=== PATIENT | male | born 1975 | race Caucasian/White ===

== ENCOUNTER 2018-11-15 21:28 | Emergency (ER) | payer SELFPAY ==
--- NOTE | 2018-11-15 21:39 | Emergency Department Record ---
History of Present Illness - General Chief Complaint: Ankle/Foot Injury Stated Complaint: LT FOOT BIG TOE NAIL RIPPED OFF Time Seen by Provider: 11/15/18 21:38 Source: Patient Mode of Arrival: Ambulatory Limitations: No limitations - History of Present Illness Initial Comments: 43 yo male presents to ED for evaluation following avulsion of the left great toe tail 3 days ago. Patient reports that he struck his toe on the door of his refrigerator resulting in mild avulsion, denies bleeding, redness, or swelling of the toe. Patient denies other injury on examination, denies health problems at her baseline. Patient reports that he has been soaking the toe in epson salt to prevent infection. MD Complaint: Other (Toe injury) Onset/Timin -: Days(s) Injury: Toes: Left Type of Injury: Blunt Place: Home Severity: Moderate Improves With: Nothing Worsens With: Nothing Context: Direct blow - Related Data Home Medications Medication Instructions Recorded Confirmed Last Taken No Home Med [NO HOME MEDS] 11/15/18 11/15/18 Unknown Previous Rx's Medication Instructions Recorded Cephalexin [Keflex] 500 mg PO QID #28 cap 11/15/18 Allergies Allergy/AdvReac Type Severity Reaction Status Date / Time No Known Drug Allergies Allergy Verified 11/15/18 21:39 Review of Systems Constitutional: Denies: Chills, Fever, Malaise, Night sweats Eyes: Denies: Eye discharge, Eye pain ENT: Denies: Congestion, Ear pain, Epistaxis Respiratory: Denies: Cough, Dyspnea Cardiovascular: Denies: Chest pain, Dyspnea on exertion Endocrine: Denies: Fatigue, Heat or cold intolerance Gastrointestinal: Denies: Abdominal pain, Nausea, Vomiting Genitourinary: Denies: Incontinence, Retention Musculoskeletal: Denies: Arthralgia, Back pain, Gout, Joint swelling Skin: Reports: Other (Toenail avulsion). Denies: Bruising, Change in color Neurological: Denies: Abnormal gait, Confusion, Headache, Seizure Psychiatric: Denies: Anxiety Hematological/Lymphatic: Denies: Anemia, Blood Clots Physical Exam - General General Appearance: Alert, Oriented x3, Cooperative, No acute distress Limitations: No limitations - Head Head exam: Atraumatic, Normocephalic, Normal inspection Head exam detail: negative: Abrasion, Contusion, Hamlin's sign, General tenderness, Hematoma, Laceration - Eye Eye exam: Normal appearance. negative: Conjunctival injection, Periorbital swelling, Periorbital tenderness, Scleral icterus - ENT Ear exam: negative: Auricular hematoma, Auricular trauma Nasal Exam: negative: Active bleeding, Discharge, Dried blood, Foreign body Mouth exam: negative: Drooling, Laceration, Muffled voice, Tongue elevation - Neck Neck exam: Normal inspection. negative: Meningismus, Tenderness - Respiratory Respiratory exam: Normal lung sounds bilaterally. negative: Rales, Respiratory distress, Rhonchi, Stridor - Cardiovascular Cardiovascular Exam: Regular rate, Normal rhythm, Normal heart sounds - GI/Abdominal GI/Abdominal exam: Soft. negative: Rebound, Rigid, Tenderness - Rectal Rectal exam: Deferred - exam: Deferred - Extremities Extremities exam: Tenderness, Other (Mild avulsion of left great toe on examination). negative: Calf tenderness, Pedal edema - Back Back exam: Denies: CVA tenderness (R), CVA tenderness (L) - Neurological Neurological exam: Alert, Normal gait, Oriented X3 - Psychiatric Psychiatric exam: Normal affect, Normal mood - Skin Skin exam: Normal color. negative: Abrasion Type of lesion: negative: abrasion Course Vital Signs 11/15/18 21:32 Temperature 98 F Pulse Rate [ 75 Pulse Ox Probe] Respiratory 20 Rate Blood Pressure 141/84 [Left Arm] Pulse Ox 98 - Reevaluation(s) Reevaluation #1: 11/15/18 21:46 Examination appears c/w toe nail avulsion Will treat with Keflex to prevent secondary infection Patient appears stable for discharge with continued symptomatic care as directed. Disposition Disposition: Discharge Clinical Impression: Nail avulsion, toe Qualifiers: Encounter type: initial encounter Qualified Code(s): S91.209A - Unspecified open wound of unspecified toe(s) with damage to nail, initial encounter Disposition: Home, Self-Care Condition: (2) Stable Instructions: Nail Avulsion (ED) Additional Instructions: Return to ED if your symptoms worsen or if you have any concerns. Keflex as directed. Follow-up with your family doctor in 3-5 days as directed. Prescriptions: Cephalexin [Keflex] 500 mg PO QID #28 cap Forms: Patient Portal Access Time of Disposition: 21:39 Quality - Quality Measures Quality Measures: N/A - Blood Pressure Screening Does Patient Have Any of the Following: No Blood Pressure Classification: Pre-Hypertensive BP Reading Systolic Measurement: 141 Diastolic Measurement: 84 Screening for High Blood Pressure: < Pre-Hypertensive BP, F/U Documented > [G8950] Pre-Hypertensive Follow-up Interventions: Referral to alternative/primary care provider.
== END 2018-11-15 21:51 | disposition home or self-care (01) ==
LOC: ER 21:28
DX: S91.202A Unspecified open wound of left great toe with damage to nail, initial encounter (principal); W22.8XXA Striking against or struck by other objects, initial encounter; Y92.009 Unspecified place in unspecified non-institutional (private) residence as the place of occurrence of the external cause
CPT/HCPCS: 99283

== ENCOUNTER 2019-01-15 12:45 | Emergency (ER) | payer SELFPAY ==
[2019-01-15] MEDS ORDERED: HYDROCODONE/APAP 5/325MG TABLET PO ONE (12:53)
[2019-01-15] MEDS ORDERED: CLINDAMYCIN 150 MG CAP PO ONE (12:53)
--- NOTE | 2019-01-15 12:55 | Emergency Department Record ---
History of Present Illness - General Stated complaint: LUMP ON NECK ABCESS Time Seen by Provider: 01/15/19 12:49 Source: Patient Mode of Arrival: Ambulatory Limitations: No limitations - History of Present Illness Initial comments: 43 yo male presents with a painful swollen area on the back of the neck. The area has gradually increased in size and pain. No drainage. No history of MRSA. He did drain one at home a few years ago on his head. MD complaint: Abscess/boil -: Days(s) (2) Location: Neck Severity: Moderate Quality: Aching Consistency: Constant Improves with: None Worsens with: Palpation Context: None Associated symptoms: Denies other symptoms Treatments Prior to Arrival: None - Related Data Previous Rx's Medication Instructions Recorded Clindamycin HCl [Cleocin HCl] 300 mg PO TID #21 capsule 01/15/19 Allergies Allergy/AdvReac Type Severity Reaction Status Date / Time No Known Drug Allergies Allergy Verified 11/15/18 21:39 Review of Systems Constitutional: Denies: Chills, Fever, Malaise, Weakness Eyes: Denies: Eye discharge ENT: Denies: Congestion, Ear pain, Throat pain Respiratory: Denies: Cough Cardiovascular: Denies: Chest pain, Syncope Endocrine: Denies: Fatigue Gastrointestinal: Denies: Abdominal pain, Diarrhea, Nausea, Vomiting Genitourinary: Denies: Dysuria, Frequency, Hematuria Musculoskeletal: Reports: As per HPI, Neck pain. Denies: Arthralgia, Back pain, Joint swelling, Myalgia Skin: Reports: As per HPI, Change in color, Lesions. Denies: Bruising Neurological: Denies: Headache Psychiatric: Denies: Anxiety Hematological/Lymphatic: Denies: Easy bleeding, Easy bruising Past Medical History - SOCIAL HISTORY Smoking Status: Never smoker Drug Use: Heavy Drug Use Detail:: Marijuana - RESPIRATORY Hx Respiratory Disorders: No - CARDIOVASCULAR Hx Cardio Disorders: No - NEURO Hx Neuro Disorders: No - GI Hx GI Disorders: No - Hx Genitourinary Disorders: No - ENDOCRINE Hx Endocrine Disorders: No - MUSCULOSKELETAL Hx Musculoskeletal Disorders: No - PSYCH Hx Psych Problems: No - HEMATOLOGY/ONCOLOGY Hx Hematology/Oncology Disorders: No Physical Exam - General General Appearance: Alert, Oriented x3, Cooperative, No acute distress Limitations: No limitations - Head Head exam: Atraumatic, Normal inspection Image of Face/Head: 1 - 3cm area of tenderness, fluctuance, pustule. consistent with abscess - Eye Eye exam: Normal appearance. negative: Scleral icterus - ENT ENT exam: Normal exam Ear exam: Normal external inspection Nasal Exam: Normal inspection Mouth exam: Normal external inspection Throat exam: Normal inspection - Neck Neck exam: Full ROM, Tenderness, Other (3cm abscess). negative: Normal inspection - Respiratory Respiratory exam: Normal lung sounds bilaterally. negative: Respiratory distress - Cardiovascular Cardiovascular Exam: Regular rate, Normal rhythm, Normal heart sounds - Extremities Extremities exam: Normal inspection - Neurological Neurological exam: Alert, Oriented X3. negative: Altered - Psychiatric Psychiatric exam: Normal affect, Normal mood - Skin Skin exam: Erythema Course - Reevaluation(s) Reevaluation #1: 01/15/19 12:55 Procedure: Abscess I and D Incision and Drainage of Abscess Betadine Prep Lidocaine with Epinephrine 3 ml 11 Blade used to make an 8mm opening Pus was immediately expressed with thick white cottage cheese like discharge consistent with sebaceous cyst that is infected Culture was obtained The cavity was irrigated and loculations broken up Packing was placed in the cavity The patient tolerated the procedure well We discussed home care and when to return for a recheck Disposition Disposition: Discharge Clinical Impression: Sebaceous cyst Cutaneous abscess Qualifiers: Site of cutaneous abscess: unspecified site Qualified Code(s): L02.91 - Cutaneous abscess, unspecified Disposition: Home, Self-Care Condition: (1) Good Instructions: Abscess Incision and Drainage (ED) Additional Instructions: Keep the area dry and clean Change the dressings daily Return if worse, fever, bleeding, swelling or any new concerns Return on Thursday for a recheck and packing removal Prescriptions: Clindamycin HCl [Cleocin HCl] 300 mg PO TID #21 capsule Forms: Patient Portal Access Time of Disposition: 13:12 Quality - Quality Measures Quality Measures: N/A - Blood Pressure Screening Does Patient Have Any of the Following: No Blood Pressure Classification: Hypertensive Reading Systolic Measurement: 143 Diastolic Measurement: 95 Screening for High Blood Pressure: < Pre-Hypertensive BP, F/U Documented > [G8950] Pre-Hypertensive Follow-up Interventions: Referral to alternative/primary care provider.
== END 2019-01-15 13:34 | disposition home or self-care (01) ==
LOC: ER 12:45
DX: L72.3 Sebaceous cyst (principal)
CPT/HCPCS: 10060; 99284